=== PATIENT | female | born 1985 | race Two or more races ===

== ENCOUNTER 2017-05-14 13:29 | Emergency (ER) | payer OTHER ==
[~2017-05-14] VITALS: Ht 165.1 cm; Wt 51.0 kg
[~2017-05-14 13:29] MED LIST: BENADRYL25 MG PO; BENADRYL50 MG PO; Epzicom PO; MEDROL DOSEPAK4 MG PO; Medrol Dosepak PO; Motrin PO; PEPCID20 MG PO; Pepcid PO; Percocet 5/325,Endoc PO; Prefera-OB Plus DHA PO; VIRAMUNE200 MG PO
[2017-05-14 14:54] LABS: EOSINOPHIL COUNT 0.1 K/uL (0-0.3); HEMATOCRIT 42.2 % (36.0-46.0); IMMATURE GRANULOCYTE (%) 0.3 % (0.0-0.7); INSTRUMENT ABS NEUTROPHIL CT 1.6 K/uL; LYMPHOCYTE COUNT 1.7 K/uL (1.0-2.8); MCH 32.9 PG (29.0-34.0); MCHC 34.1 G/DL (30.0-36.0); MCV 96.3 FL (83-99); MEAN PLAT.VOLUME 8.6 uM^3 (9.5-12.4); MONOCYTE (%) 9.4 % (3-12); MONOCYTE COUNT 0.4 K/uL (0-0.8); NEUTROPHIL (%) 41.9 % (45-76); NEUTROPHIL COUNT 1.6 K/uL (1.8-6.4); PLATELET COUNT 196 K/uL (156-360); RBC DIS.WIDTH-CV 11.1 % (11.8-14.6); RBC DIS.WIDTH-SD 39.7 % (39-53); RED BLOOD COUNT 4.38 M/uL (3.80-5.20); WHITE BLOOD COUNT 3.7 K/uL (4.1-10.2)
[2017-05-14 15:15] LABS: TROP-I INTERPRETATION NEGATIVE; TROPONIN-I < 0.01 ng/mL (0.0-0.30)
[2017-05-14 15:33] LABS: CHLORIDE 104 mEq/L (99-109)
[2017-05-14 15:34] LABS: POTASSIUM 4.6 mEq/L (3.7-5.4); SODIUM 137 mEq/L (136-147)
[2017-05-14 15:36] LABS: GLUCOSE 82 mg/dL (70-99)
[2017-05-14 15:37] LABS: ANION GAP 10 MEQ/L (2-14)
[2017-05-14 15:38] LABS: TOTAL BILIRUBIN 0.2 mg/dL (0.0-1.0)
[2017-05-14 15:39] LABS: ALKALINE PHOSPHATASE 70 IU/L (3-129)
[2017-05-14 15:40] LABS: GFR ESTIMATE (CALCULATED) > 59 mL/min/
[2017-05-14 15:41] LABS: DIRECT BILIRUBIN 0.1 mg/dL (0.0-0.3); UREA NITROGEN (BUN) 11 mg/dL (9-23)
[2017-05-14] MEDS ORDERED: LEVAQUIN500 MG PO (19:26)
[2017-05-14] MEDS ORDERED: TYLENOL WITH C1 EACH PO (19:26)
[2017-05-14 19:35] VITALS: BP 127/82
== END 2017-05-14 19:40 | disposition home or self-care (01) ==
LOC: EME 13:29
PROVIDERS: Emergency Medicine
DX: R07.9 Chest pain, unspecified (principal); J32.9 Chronic sinusitis, unspecified; R42 Dizziness and giddiness; Z21 Asymptomatic human immunodeficiency virus [HIV] infection status; Z88.0 Allergy status to penicillin
CPT/HCPCS: 70450; 71020; 80048; 80076; 84484; 85025; 93005; 99281; 99285; J1100; J2405; J7030